=== PATIENT | male | born 1955 | race Caucasian/White ===

== ENCOUNTER 2022-10-21 20:59 | Emergency (ER) | payer MEDICARE, SELFPAY ==
[2022-10-21 21:19] VITALS: BP 220/160; PULSE 110; RESP 20; TEMP 37.5; O2SAT 97
--- NOTE | 2022-10-21 22:34 | ED_ITS ---
HPI - General Adult General Time Seen by Provider: 22:35 Date Seen: 10/21/22 Chief complaint: Skin/Abscess/Foreign Body Stated complaint: Cyst on side of R congregation, popped and bleeding Time Seen by Provider: 10/21/22 21:29 Source: patient and family Mode of arrival: ambulatory Limitations: no limitations History of Present Illness HPI narrative: 66y/o male who presents with growth on the right congregation/eyebrow area. Patient says he has had this for approximately 10 years and is been getting bigger, tonight started bleeding and he could not get it to stop so came to the emergency department. Does not take blood thinners. Related Data Previous Rx's Medication Instructions Recorded lisinopril 10 mg tablet 10 mg PO DAILY #30 tabs 10/21/22 Allergies Allergy/AdvReac Type Severity Reaction Status Date / Time No Known Drug Allergies Allergy Verified 10/21/22 21:25 Exam Narrative: Exam Narrative: General: well nourished , NAD Head: Atraumatic and normocephalic ENT: External ears and external nose are normal Eyes: Conjunctiva clear, pupils are equal reactive, external ocular motions are intact Neck: Full spontaneous range of motion of the neck Lungs: No respiratory distress Musculoskeletal: No tenderness or deformity Neurologic: No gross focal neurologic deficits Skin: 4 cm raised irregular flat she mass of the right congregation and right eyebrow, anteriorly there is an open area that goes down the muscularis. Patient is unable to open the right eye due to intrusion on the lateral upper lid as well as a smaller satellite lesion of the right eyebrow itself. Active bleeding from the posterior edge Psych: Mood and affect are appropriate Const: Vital Signs, click to edit/add: Vital Signs - 24 hr 10/21/22 21:19 Temperature 99.5 F Pulse Rate [Pulse Oximeter] 110 H Respiratory Rate 20 Blood Pressure [Ri ght Forearm] 220/160 H Pulse Oximetry 97 Oxygen Delivery Me thod Room Air Course Course Hospital Course: Patient seen and examined, prior records are reviewed. Patient presents today with a longstanding lesion/mass of the right congregation in eyebrow which now is bleeding. This obviously represents a skin cancer with active bleeding from 1 of superficial veins. Lidocaine 1% with epinephrine was injected and silver nitrate cautery was used to stop bleeding. Patient tolerated this well. Patient will need urgent follow-up for this as this starting to intrude on the orbit and eyelid, concern that the eye and periorbital tissues may not be salvageable at this point. Will discuss with [facility] [place]. Reevaluation(s) Time of Reevaluation #1: 23:30 Reevaluation #1: Care discussed with Dr. Barnes, [facility]. Patient will be seen in clinic tomorrow, should arrive around 11:00 a.m. but the clinic call at follow-up. Updated patient and family with plan. Vital Signs Vital signs: Initial Vital Signs Temperature 99.5 F 10/21/22 21:19 Temperature Source Temporal Artery Scan 10/21/22 21:19 Pulse Rate 110 H 10/21/22 21:19 Pulse Rhythm Regular 10/21/22 21:19 Pulse Strength 3+ Normal 10/21/22 21:19 Respiratory Rate 20 10/21/22 21:19 Blood Pressure 220/160 H 10/21/22 21:19 Blood Pressure Mean 180 H 10/21/22 21:19 Blood Pressure Position Sitting 10/21/22 21:19 Pulse Oximetry 97 10/21/22 21:19 Oxygen Delivery Method Room Air 10/21/22 21:19 Vital Signs Temperature 99.5 F 10/21/22 21:19 Pulse Rate 110 H 10/21/22 21:19 Respiratory Rate 20 10/21/22 21:19 Blood Pressure 220/160 H 10/21/22 21:19 Pulse Oximetry 97 10/21/22 21:19 Oxygen Delivery Method Room Air 10/21/22 21:19 Temperature 99.5 F 10/21/22 21:19 Pulse Rate 110 H 10/21/22 21:19 Respiratory Rate 20 10/21/22 21:19 Blood Pressure 220/160 H 10/21/22 21:19 Pulse Oximetry 97 10/21/22 21:19 Oxygen Delivery Method Room Air 10/21/22 21:19 Discharge Plan Discharge Clinical Impression: Skin cancer, Bleeding, Hypertension Patient Disposition: Home, Self-Care Condition: Stable Additional Instructions: Follow-up at [facility] tomorrow at 11 AM tomorrow [facility] or [facility]. Care discussed with Dr. Barnes Activity Level: No Restrictions Discharge Diet: Regular Prescriptions: New lisinopril 10 mg tablet 10 mg PO DAILY Qty: 30 0RF Stand Alone Forms: MyHealth Info Instructions
== END 2022-10-21 23:49 | disposition home or self-care (01) ==
PROVIDERS: Emergency Provider Family Medicine
DX: C44.99 Other specified malignant neoplasm of skin, unspecified (principal); I10 Essential (primary) hypertension
CPT/HCPCS: 17250; 99283; 99284